=== PATIENT | male | born 2000 | race Caucasian/White ===

== ENCOUNTER 2022-04-22 11:47 | Emergency (ER) | payer OTHER, SELFPAY ==
--- NOTE | ~2022-04-22 | XR_ITS ---
EXAMINATION: XR shoulder RT min 2V DATE: 04/22/2022 12:34 INDICATION: Right shoulder injury and pain. TECHNIQUE: 4 views of right shoulder were obtained. COMPARISON: None. FINDINGS: There is a comminuted fracture of proximal right humerus with involvement of the greater tu berosity and surgical neck. The distal fracture fragment at the surgical neck demonstrates impaction and 6 mm medial displacement. Joint spaces are normal. IMPRESSION: 1. Comminuted two-part fracture of proximal right humerus. Reviewed, dictated and finalized at location A.
[2022-04-22 11:54] VITALS: BP 131/78; PULSE 92; RESP 16; TEMP 37; O2SAT 100
[2022-04-22] MEDS: KETOROLAC (*BKC) 60 MG/2 ML VIAL IM (12:31)
[2022-04-22] MEDS: Please add drug allergy info to patient profile. 1 EACH XX (12:33)
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
== END 2022-04-22 13:39 | disposition home or self-care (01) ==
PROVIDERS: Emergency Provider Emergency Medicine
DX: S42.201A Unspecified fracture of upper end of right humerus, initial encounter for closed fracture (principal); Y04.0XXA Assault by unarmed brawl or fight, initial encounter
CPT/HCPCS: 73030; 99284; J1885

== ENCOUNTER 2022-04-24 13:00 | Emergency (ER) | payer OTHER, SELFPAY ==
[2022-04-24 13:35] VITALS: BP 136/75; PULSE 78; RESP 14; TEMP 36.8; O2SAT 98
--- NOTE | 2022-04-24 14:00 | ED.UPPEXIN ---
HPI - Extremity Injury (Upper) General Chief Complaint: Extremity Injury, Upper Stated Complaint: right shoulder injury History of Present Illness HPI narrative: 21-year-old male who recently fractured his right proximal humerus presents the emergency room for numbness and tingling in his fingers and increase in ecchymosis around the upper arm. Patient was seen here on Friday after being diagnosed with a proximal humerus fracture [facility], stating that he has noticed black and blue extending from his shoulder to his elbow. Patient states he has been keeping his arm in a sling since the onset of his injury. Now is complaining of swelling and numbness and tingling to his fingers. Related Data Allergies Allergy/AdvReac Type Severity Reaction Status Date / Time No Known Allergies Allergy Verified 04/22/22 12:32 Review of Systems Review of Systems: CONSTITUTIONAL: Denies fever, chills, or sweats. EYES: Denies visual changes, redness, or discharge. ENT: Denies rhinorrhea, congestion, sore throat, or otalgia. CARDIOVASCULAR: Denies chest pain, palpitations, or edema. RESPIRATORY: Denies cough or dyspnea. GASTROINTESTINAL: Denies abdominal pain, nausea, vomiting, or diarrhea. GENITOURINARY: Denies dysuria or hematuria. SKIN: Denies rash or itching. MUSCULOSKELETAL: Reports pain to right shoulder NEUROLOGIC: Denies headache, numbness, dizziness, or weakness. PSYCHIATRIC: Denies anxiety or depression. [facility] Past Medical History Medical History History of heart disorder Patient reports history of hole in heart but unsure if ASD/VSD/PFO. 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 Social History Social History Smoking status: Current every day smoker Exam Narrative: GENERAL: Well-appearing, well-nourished, no physical limitations, and in no acute distress. HEAD: Normocephalic, atraumatic. EYES: Conjunctivae normal, PERRLA and EOMI. CHEST: Clear to auscultation. No respiratory distress. No wheezes rales or rhonchi. No tenderness. HEART: Regular rate and rhythm. No murmur heard. Normal peripheral pulses. EXTREMITIES: RUE: The proximal humerus, ecchymosis extending from shoulder to elbow primarily on the anterior surface. Limited range of motion of the shoulder due to pain. [place] Dip Net strength 5/5 bilaterally, full range of motion of the elbow and wrist joints, neurovascular is intact distally SKIN: Warm, dry, no rash. No noted wounds NEURO: No focal deficits. Alert and oriented x3. MAEW. CN's II-XI intact bilaterally, normal gait PSYCH: Cooperative. Normal mood and affect. Course Course Emergency Course: 1400: Patient presented concerns of worsening bruising to his upper extremity and a lack of sensation to the superior surface of his shoulder. Discussed with patient that the bruising is normal and that it could extend all the way to the wrist depending on if he left his arm in a dependent position. Also explained to patient that he could experience of numbness to the injured area and distal to the injured area just due to swelling. Patient stated understanding and has a plan to follow-up with orthopedics next week. Vital Signs Vital signs: Vital Signs Temperature 36.8 C 04/24/22 13:35 Pulse Rate 78 04/24/22 13:35 Respiratory Rate 14 04/24/22 13:35 Blood Pressure 136/75 04/24/22 13:35 Pulse Oximetry 98 04/24/22 13:35 Temperature 36.8 C 04/24/22 13:35 Pulse Rate 78 04/24/22 13:35 Respiratory Rate 14 04/24/22 13:35 Blood Pressure 136/75 04/24/22 13:35 Pulse Oximetry 98 04/24/22 13:35 Discharge Plan Discharge Clinical Impression: Fracture of humerus Patient Disposition: Home, Self-Care Condition: Stable Additional Ins
== END 2022-04-24 14:10 | disposition home or self-care (01) ==
PROVIDERS: Emergency Provider Nurse Practitioner Family; PCP Internal Medicine
DX: S42.201D Unspecified fracture of upper end of right humerus, subsequent encounter for fracture with routine healing (principal); X58.XXXD Exposure to other specified factors, subsequent encounter; F17.200 Nicotine dependence, unspecified, uncomplicated
CPT/HCPCS: 99284